=== PATIENT | male | born 1950 | race Caucasian/White ===

== ENCOUNTER 2022-04-28 08:26 | Emergency (ER) | payer MEDICARE, MEDICAID ==
[~2022-04-28] VITALS: Ht 177.8 cm; Wt 109.1 kg
[~2022-04-28 08:26] MED LIST: AMLODIPINE5 MG PO; BAYER ASPIRIN E81 MG PO; FISH OIL1000 MG PO; LISINOPRIL5 MG PO; SIMVASTATIN20 MG PO
[2022-04-28 09:00] LABS: HEMATOCRIT 50.6 % (39.0-50.0); HEMOGLOBIN 15.6 g/dl (14.0-18.0); IMMATURE GRANULOCYTES 0.7 % (0.0-5.0); MEAN CELL VOLUME 96.6 fL CALC (80.0-100.0); MEAN CORPUSCULAR HGB 29.8 pG CALC (26.0-32.0); MEAN CORPUSCULAR HGB CONC 30.8 g/dL CAL (32.0-36.0); NEUT# 7.55 thou/uL (1.82-7.42); RED BLOOD COUNT 5.24 mill/uL (4.70-6.10); RED CELL DISTRI WIDTH 12.6 % (11.5-15.5)
[2022-04-28 09:12] LABS: ALBUMIN 4.8 g/dL (3.2-5.0); ALKALINE PHOSPHATASE 102 u/l (38-126); BILIRUBIN, TOTAL 0.6 mg/dL (0.0-1.4); BUN 14 mg/dL (8-23); BUN/CREATININE RATIO 12 (12-20 (CALC)); CHLORIDE 107 mmol/l (95-108); CPK 95 u/l (52-200); CREATININE 1.1 mg/dL (0.7-1.3); ETHYL ALCOHOL 0 mg/dl (0-30); GFR FOR AFR.AMER. > 60 ML/MIN (>=60 (CALC)); GFR OTHER RACES > 60 ML/MIN (>=60 (CALC)); POTASSIUM 3.8 mmol/l (3.5-5.1); SGOT/AST 39 u/l (19-48); SODIUM 146 mmol/l (137-146); TOTAL PROTEIN 7.6 g/dL (6.3-8.2)
[2022-04-28 09:16] LABS: ANION GAP 37 (6-22 (CALC))
[2022-04-28 09:22] LABS: CARBON DIOXIDE 6 mmol/l (22-30)
[2022-04-28 09:29] LABS: URINE BILIRUBIN - DIPSTICK NEGATIVE (NEGATIVE); URINE BLOOD DIPSTICK SMALL (NEGATIVE); URINE COLOR YELLOW; URINE GLUCOSE - DIPSTICK NEGATIVE (NEGATIVE); URINE KETONE NEGATIVE (NEGATIVE); URINE LEUK ESTERASE NEGATIVE (NEGATIVE); URINE PH 5.5 (4.5-8.0); URINE PROTEIN - DIPSTICK 30 mg/dL (NEG-TRACE); URINE SPECIFIC GRAVITY >=1.030; URINE UROBILINOGEN - DIPSTICK 0.2 E.U./dL (0.2)
[2022-04-28 09:30] LABS: URINE NITRITE - DIPSTICK NEGATIVE (Negative)
[2022-04-28 09:31] LABS: URINE EPITHELIAL CELLS FEW EPI/hpf (0-FEW); URINE MUCUS MODERATE hpf (NONE-FEW)
[2022-04-28 12:09] VITALS: BP 101/58
[2022-04-28 12:10] VITALS: BP 99/52
[2022-04-28 12:15] VITALS: BP 100/59
[2022-04-28 12:20] VITALS: BP 111/65
[2022-04-28 12:25] VITALS: BP 116/60
[2022-04-28 13:10] VITALS: BP 116/60
== END 2022-04-28 13:11 | disposition short-term general hospital (02) ==
LOC: ED 08:26
PROVIDERS: Family Medicine
PROC: 0BH17EZ Insertion of Endotracheal Airway into Trachea, Via Natural or Artificial Opening (ICD-10-PCS; principal; 2022-04-28)
PROC: 5A1935Z Respiratory Ventilation, Less than 24 Consecutive Hours (ICD-10-PCS; 2022-04-28)
PROC: 0T9B70Z Drainage of Bladder with Drainage Device, Via Natural or Artificial Opening (ICD-10-PCS; 2022-04-28)
DX: A41.9 Sepsis, unspecified organism (principal); J18.9 Pneumonia, unspecified organism; R56.9 Unspecified convulsions; I10 Essential (primary) hypertension; Z20.822 Contact with and (suspected) exposure to COVID-19
CPT/HCPCS: J1953; Q9967